=== PATIENT | female | born 1965 | race Caucasian/White ===

== ENCOUNTER 2016-09-14 19:29 | Inpatient (IN) | payer BC, OTHER ==
[~2016-09-14] VITALS: Ht 154.9 cm; Wt 72.1 kg
[2016-09-14] MEDS ORDERED: ACETAMINOPHEN 500 MG TAB (TYLENOL) PO ONE (21:00)
[2016-09-14] MEDS ORDERED: IBUPROFEN 800 MG (MOTRIN) TAB PO ONE (21:00)
[2016-09-14 21:05] LABS: BILIRUBIN,URINE NEGATIVE (NEGATIVE); KETONES,URINE NEGATIVE (NEGATIVE); LEUKOCYTE ESTERASE ,URINE 3+ (NEGATIVE); NITRITE,URINE POSITIVE (NEGATIVE); PH,URINE 6 (5-9); PROTEIN,URINE 1+ (NEGATIVE); UROBILINOGEN,URINE NORMAL (NORMAL)
[2016-09-14 21:08] LABS: BASOPHILS % (AUTO) 0 % (0-10); EOSINOPHILS # (AUTO) 0.1 10^3/uL (0.0-0.3); EOSINOPHILS % (AUTO) 0 % (0-10); LYMPHOCYTES # (AUTO) 3.4 X 10^3 (1.0-4.0); LYMPHOCYTES % (AUTO) 20 % (12-44); MEAN CORPUSCULAR HEMOGLOBIN 27 PG (25-34); MEAN CORPUSCULAR HGB CONC 34 G/DL (32-36); MEAN CORPUSCULAR VOLUME 81 FL (80-99); MEAN PLATELET VOLUME 9.8 FL (7.4-10.4); MONOCYTES # (AUTO) 2.5 X 10^3 (0.0-1.0); MONOCYTES % (AUTO) 14 % (0-12); NEUTROPHILS # (AUTO) 11.3 X 10^3 (1.8-7.8); NEUTROPHILS % (AUTO) 65 % (42-75); PLATELET COUNT 276 10^3/uL (130-400); RED BLOOD COUNT 4.22 10^6/uL (4.35-5.85); WHITE BLOOD COUNT 17.3 10^3/uL (4.3-11.0)
[2016-09-14 21:17] LABS: WBC,URINE TNTC /HPF
[2016-09-14 21:31] LABS: ALANINE AMINOTRANSFERASE 31 U/L (0-55); ALBUMIN 4.1 GM/DL (3.2-4.5); ANION GAP 14 MMOL/L (5-14); ASPARTATE AMINO TRANSFERASE 20 U/L (5-34); BILIRUBIN,TOTAL 0.6 MG/DL (0.1-1.0); BLOOD UREA NITROGEN 11 MG/DL (7-18); BUN/CREATININE RATIO 12 (0-20); CALCIUM 9.9 MG/DL (8.5-10.1); CARBON DIOXIDE 17 MMOL/L (21-32); CHLORIDE 103 MMOL/L (98-107); CREATININE SERUM 0.92 MG/DL (0.60-1.30); GFR ESTIMATED > 60; GLUCOSE 181 MG/DL (70-105); HEMOLYSIS 10 (-100-29); ICTERUS 0.5 (-100-1.9); LIPEMIA 3 (-100-49); POTASSIUM 3.9 MMOL/L (3.6-5.0); SODIUM 134 MMOL/L (135-145); TOTAL PROTEIN 7.1 GM/DL (6.4-8.2)
[2016-09-14] MEDS ORDERED: LEVOFLOXACIN 500 MG TAB (LEVAQUIN) PO STA (21:34)
[2016-09-14] MEDS ORDERED: NS IV 1000 ML 1,000 ML IV ONE (21:35)
[2016-09-14 21:36] LABS: BAND NEUTROPHILS 4 %; LYMPHOCYTES % (MANUAL) 14 %; NEUTROPHILS % (MANUAL) 72 %
[2016-09-14] MEDS ORDERED: cefTRIAXone INJECTION 1,000 MG in NS (IVPB) 50 ML IV ONE (21:45)
--- NOTE | 2016-09-14 22:02 | Diagnostic Imaging Report ---
INDICATION: Abdomen pain, UTI. History of kidney stones. EXAMINATION: CT abdomen and pelvis without contrast, 09/14/2016. FINDINGS: Minimal linear atelectasis or scar is seen in the right middle lobe and in the lingula. Remaining visualized lung bases are unremarkable. Within the abdomen and pelvis, the nonopacified abdominal viscera are limited due to lack of contrast. There is a hyperdensity nonspecific in nature within the left lobe of the liver which measures at least 9.3 mm in size. A very vague increased density in the right lobe of the liver, seen on image 43 and 42, are also noted and nonspecific. There is a larger vague hyperdensity in the left lobe of the liver as well, images 24 through 29.There is evidence of previous cholecystectomy. The spleen is unremarkable. The pancreas is normal in appearance. Adrenal glands are unremarkable. There are no ureteral stones on either side and there is no hydronephrosis. However, there is mild fat stranding about the kidneys, right greater than left. All of these findings could be chronic superimposed recently passed stone or pyelonephritis can cause a similar appearance, correlate clinically. Punctate nonobstructive stone is seen in both kidneys as well. There is no significant ascites. There is no free air. Appendix is unremarkable. There is no acute osseous abnormality. Changes within several vertebral bodies in the upper lumbar region are likely hemangiomas. IMPRESSION: 1. Minimal fat stranding about the kidneys, right greater than left but no hydronephrosis or ureteral stone is appreciated. All of these findings could be chronic. Clinical correlation with a urinalysis is recommended. A recently passed stone or pyelonephritis could cause a similar appearance. 2. Vague hyperdensities within the liver of uncertain significance. These could represent partially calcified lesions or hemorrhagic lesions. However, postcontrast imaging of the liver using a liver protocol is recommended for further characterization. 3. Other incidental findings as described above. Dictated by: Dictated on workstation # [id number]
[2016-09-14] MEDS ORDERED: cefTRIAXone 1 GM (ROCEPHIN) VIAL ONE (22:12)
[2016-09-14] MEDS ORDERED: NS (IVPB) 50 ML ONE (22:12)
--- NOTE | 2016-09-14 23:11 | ED GU-Female ---
General Chief Complaint: -Female Stated Complaint: POSSIBLE UTI/FEVER Source: patient History of Present Illness Time seen by provider: 20:42 Initial Comments PT BEGAN HAVING MILD BURNING ON URINATION LAST NIGHT BURNING IS MUCH WORSE TODAY C/O LOWER BACK PAIN TONIGHT, BEGAN RUNNING FEVER--WAS 100.2 AT HOME C/O MILD NAUSEA, NO VOMITING NO ABDOMINAL PAIN TOOK AZO X 1, BUT NOTHING ELSE FOR SYMPTOMS PT IS DIABETIC AND HAS HAD MULTIPLE UTI'S, BUT USUALLY NOT THIS BAD PCP: DR. ARRIAGA Allergies and Home Medications Allergies Coded Allergies: No Known Drug Allergies (Unverified , 09/14/16) Constitutional: see HPI, fever, malaise EENTM: no symptoms reported Respiratory: no symptoms reported Cardiovascular: no symptoms reported Gastrointestinal: see HPI, No abdominal pain, loss of appetite, nausea, No vomiting Genitourinary: see HPI, burning, flank pain : No (LMP--DOES NOT HAVE PERIODS--IS ON CONTINUOUS HORMONE THERAPY) Musculoskeletal: see HPI, back pain Skin: no symptoms reported Psychiatric/Neurological: No Symptoms Reported Endocrine: No Symptoms Reported Hematologic/Lymphatic: No Symptoms Reported Past Rypomqs-Vpsbdm-Lvlcjp Hx Patient Social History Alcohol Use: Denies Use Recreational Drug Use: No Smoking Status: Never a Smoker Recent Foreign Travel: No Contact w/Someone Who Travel: No Surgeries HX Surgeries: Yes (SINUS SURGERY; BREAST BIOPSY ( BENIGN ) : X 1) Surgeries: Breast, Section, Gallbladder Respiratory Hx Respiratory Disorders: Yes Respiratory Disorders: Asthma Cardiovascular Hx Cardiac Disorders: Yes Cardiac Disorders: Hypertension Neurological Hx Neurological Disorders: No Reproductive System : No Female Reproductive Disorders: Denies Genitourinary Hx Genitourinary Disorders: Yes Genitourinary Disorders: Bladder Infection Gastrointestinal Hx Gastrointestinal Disorders: No Musculoskeletal Hx Musculoskeletal Disorders: No Endocrine Hx Endocrine Disorders: Yes Endocrine Disorders: Hypothyroidsim, Diabetes, Non-Insulin dep HEENT HX ENT Disorders: No Cancer Hx Cancer: No Psychosocial Hx Psychiatric Problems: No Integumentary HX Skin/Integumentary Disorder: No Blood Transfusions Hx Blood Disorders: No Physical Exam Vital Signs Vital Sign - Last 12Hours 09/14/16 20:38 Temp 101.4 Pulse 89 Resp 14 B/P (MAP) 147/97 Pulse Ox 98 O2 Delivery Room Air Capillary Refill : General Appearance: WD/WN, no apparent distress Neck: normal inspection Cardiovascular: regular rate, rhythm, no murmur Respiratory: normal breath sounds, no respiratory distress, no accessory muscle use Gastrointestinal: normal bowel sounds, non tender, soft, no organomegaly, no pulsatile mass Back: no vertebral tenderness, CVA tenderness (R) (MILD), CVA tenderness (L) ( MILD) Extremities: normal inspection, no pedal edema, no calf tenderness, normal capillary refill Neurologic/Psychiatric: driveway attendant II-XII nml as tested, no motor/sensory deficits, alert, normal mood/affect, oriented x 3 Skin: normal color, warm/dry, No rash Focused Exam Lactic Acid Level Progress/Results/Core Measures Results/Orders Lab Results Laboratory Tests Test 09/14/16 20:38 09/14/16 20:59 Range/Units Urine Color YELLOW Urine Clarity CLEAR Urine pH 6 5-9 Urine Specific [place] 1.010 L 1.016-1.022 Urine Protein 1+ H NEGATIVE Urine Glucose (UA) NEGATIVE NEGATIVE Urine Ketones NEGATIVE NEGATIVE Urine Nitrite POSITIVE H NEGATIVE Urine Bilirubin NEGATIVE NEGATIVE Urine Urobilinogen NORMAL NORMAL MG/DL Urine Leukocyte Esterase 3+ H NEGATIVE Urine RBC (Auto) 1+ H NEGATIVE Urine RBC NONE /HPF Urine WBC TNTC H /HPF Urine Squamous Epithelial Cells 5-10 /HPF Urine Crystals NONE /LPF Urine Bacteria LARGE H /HPF Urine Casts NONE /LPF Urine Mucus SMALL H /LPF Urine Culture Indicated YES White Blood Count 17.3 H 4.3-11.0 10^3/uL Red Blood Count 4.22 L 4.35-5.85 10^6/uL Hemoglobin 11.4 L 11.5-16.0 G/DL Hematocrit 34 L 35-52 % Mean Corpuscular Volume 81 80-99 FL Mean Corpuscular Hemoglobin 27 25-34 PG Mean Corpuscular Hemoglobin Concent 34 32-36 G/DL Red Cell Distribution Width 13.0 10.0-14.5 % Platelet Count 276 130-400 10^3/uL Mean Platelet Volume 9.8 7.4-10.4 FL Neutrophils (%) (Auto) 65 42-75 % Lymphocytes (%) (Auto) 20 12-44 % Monocytes (%) (Auto) 14 H 0-12 % Eosinophils (%) (Auto) 0 0-10 % Basophils (%) (Auto) 0 0-10 % Neutrophils # (Auto) 11.3 H 1.8-7.8 X 10^3 Lymphocytes # (Auto) 3.4 1.0-4.0 X 10^3 Monocytes # (Auto) 2.5 H 0.0-1.0 X 10^3 Eosinophils # (Auto) 0.1 0.0-0.3 10^3/uL Basophils # (Auto) 0.0 0.0-0.1 10^3/uL Neutrophils % (Manual) 72 % Lymphocytes % (Manual) 14 % Monocytes % (Manual) 10 % Band Neutrophils 4 % Toxic Granulation 1+ Blood Morphology Comment NORMAL Sodium Level 134 L 135-145 MMOL/L Potassium Level 3.9 3.6-5.0 MMOL/L Chloride Level 103 98-107 MMOL/L Carbon Dioxide Level 17 L 21-32 MMOL/L Anion Gap 14 5-14 MMOL/L Blood Urea Nitrogen 11 7-18 MG/DL Creatinine 0.92 0.60-1.30 MG/DL Estimat Glomerular Filtration Rate > 60 BUN/Creatinine Ratio 12 0-20 Glucose Level 181 H 70-105 MG/DL Lactic Acid Level 1.91 0.50-2.00 MMOL/L Calcium Level 9.9 8.5-10.1 MG/DL Total Bilirubin 0.6 0.1-1.0 MG/DL Aspartate Amino Transf (AST/SGOT) 20 5-34 U/L Alanine Aminotransferase (ALT/SGPT) 31 0-55 U/L Alkaline Phosphatase 53 40-136 U/L Total Protein 7.1 6.4-8.2 GM/DL Albumin 4.1 3.2-4.5 GM/DL My Orders Orders - KAYDENRANJAN DO Saline Lock/Iv-Start (09/14/16 20:42) Cbc With Automated Diff (09/14/16 20:42) Comprehensive Metabolic Panel (09/14/16 20:42) Lactic Acid Analyzer (09/14/16 20:42) Ua Culture If Indicated (09/14/16 20:42) Blood Culture (09/14/16 20:42) Acetaminophen Tablet (Tylenol Tablet) (09/14/16 21:00) Ibuprofen Tablet (Motrin Tablet) (09/14/16 21:00) Manual Differential (09/14/16 20:59) Urine Culture (09/14/16 20:38) Ceftriaxone Injection (Rocephin Injectio (09/14/16 21:45) Levofloxacin Tablet (Levaquin Tablet) (09/14/16 21:34) Ct Abd/Pelvis Wo(Kidney Stone) (09/14/16 21:35) Abdomen/Kub 1view (09/14/16 21:35) Saline Lock/Iv-Start (09/14/16 21:35) Ns Iv 1000 Ml (Sodium Chloride 0.9%) (09/14/16 21:35) Ceftriaxone Injection (Rocephin Injectio (09/14/16 22:12) Ns (Ivpb) (Sodium Chloride 0.9% Ivpb Bag (09/14/16 22:12) Medications Given in ED Current Medications Medications Dose Ordered Sig/Bobby Route Start Time Stop Time Status Last Admin Dose Admin Acetaminophen 1,000 mg ONCE ONCE PO 09/14/16 21:00 09/14/16 21:02 DC 09/14/16 21:07 1,000 MG Ceftriaxone Sodium 1000 mg/ Sodium Chloride 50 ml @ 100 mls/hr ONCE ONCE IV 09/14/16 21:45 09/14/16 22:23 DC 09/14/16 22:24 100 MLS/HR Ibuprofen 800 mg ONCE ONCE PO 09/14/16 21:00 09/14/16 21:02 DC 09/14/16 21:08 800 MG Sodium Chloride 1,000 ml @ 0 mls/hr Q0M ONCE IV 09/14/16 21:35 09/14/16 21:37 DC 09/14/16 22:10 0 MLS/HR Vital Signs/I&O Vital Sign - Last 12Hours 09/14/16 09/14/16 09/14/16 09/15/16 20:38 21:07 21:08 00:00 Temp 101.4 101.4 101.4 Pulse 89 Resp 14 B/P (MAP) 147/97 Pulse Ox 98 O2 Delivery Room Air Room Air 09/15/16 09/15/16 00:00 02:00 Temp 98.1 98.3 Pulse 101 103 Resp 18 20 B/P (MAP) 121/75 108/63 Pulse Ox 97 95 O2 Delivery Room Air Room Air Progress Note : Progress Note FEELS MUCH BETTER WITH TYLENOL AND IBUPROFEN Diagnostic Imaging Comments KUB--NO ACUTE PROCESS, PENDING RADIOLOGIST REVIEW CT ABDOMEN/PELVIS--FAT STRANDING AROUND BOTH KIDNEYS RIGHT > LEFT, PYELONEPHRITIS VS RECENTLY PASSED STONES; NON-SPECIFIC HYPERDENSITIES IN LIVER-- PER RADIOLOGIST REPORT @ 2215 Reviewed: Reviewed by Me Departure Communication Progress Notes 2218--SPOKE WITH DR. MIX, ACCEPTS PT FOR ADMIT. Impression Impression: Primary Impression: Pyelonephritis Additional Impressions: Sepsis Diabetes Disposition: ADMITTED INPATIENT Condition: Improved Decision to Admit Reason: Admit from ER (General) Decision to Admit/Date: Sep 14, 2016 Time/Decision to Admit Time: 22:20 Departure-Patient Inst. Referrals: MITCH ARRIAGA DO (PCP) Primary Care Physician RANJAN MONIQUE DO Sep 14, 2016 11:11 pm
[2016-09-15] VITALS (7 sets, daily range): BP systolic 108–156; BP diastolic 63–85
[2016-09-15] MEDS ORDERED: ONDANSETRON 4 MG/2 ML (SDV) Z0FRAN IV PRN (00:30)
[2016-09-15] MEDS: NS IV 1000 ML 1,000 ML IV SCH ×3 (00:41→16:58)
[2016-09-15 05:14] LABS: BASOPHILS % (AUTO) 0 % (0-10); EOSINOPHILS # (AUTO) 0.1 10^3/uL (0.0-0.3); EOSINOPHILS % (AUTO) 1 % (0-10); LYMPHOCYTES # (AUTO) 2.2 X 10^3 (1.0-4.0); LYMPHOCYTES % (AUTO) 19 % (12-44); MEAN CORPUSCULAR HEMOGLOBIN 27 PG (25-34); MEAN CORPUSCULAR HGB CONC 33 G/DL (32-36); MEAN CORPUSCULAR VOLUME 81 FL (80-99); MEAN PLATELET VOLUME 9.6 FL (7.4-10.4); MONOCYTES # (AUTO) 1.5 X 10^3 (0.0-1.0); MONOCYTES % (AUTO) 13 % (0-12); NEUTROPHILS # (AUTO) 7.6 X 10^3 (1.8-7.8); NEUTROPHILS % (AUTO) 67 % (42-75); PLATELET COUNT 235 10^3/uL (130-400); RED BLOOD COUNT 3.89 10^6/uL (4.35-5.85); WHITE BLOOD COUNT 11.4 10^3/uL (4.3-11.0)
[2016-09-15 05:43] LABS: ALANINE AMINOTRANSFERASE 25 U/L (0-55); ALBUMIN 3.4 GM/DL (3.2-4.5); ANION GAP 9 MMOL/L (5-14); ASPARTATE AMINO TRANSFERASE 14 U/L (5-34); BILIRUBIN,TOTAL 0.5 MG/DL (0.1-1.0); BLOOD UREA NITROGEN 13 MG/DL (7-18); BUN/CREATININE RATIO 14 (0-20); CARBON DIOXIDE 20 MMOL/L (21-32); CHLORIDE 106 MMOL/L (98-107); CREATININE SERUM 0.91 MG/DL (0.60-1.30); GFR ESTIMATED > 60; GLUCOSE 250 MG/DL (70-105); HEMOLYSIS 3 (-100-29); ICTERUS 0.4 (-100-1.9); LIPEMIA 18 (-100-49); POTASSIUM 3.9 MMOL/L (3.6-5.0); SODIUM 135 MMOL/L (135-145)
[2016-09-15] MEDS: inSUlin (REGULAR) HUMAN 1 UNIT/0.01 ML (CHARGE PER UNIT) SC SCH ×4 (06:19→20:56)
[2016-09-15] MEDS: ACETAMINOPHEN 500 MG TAB (TYLENOL) PO PRN ×2 (06:39→19:27)
--- NOTE | 2016-09-15 08:23 | Diagnostic Imaging Report ---
Indication: Abdominal pain, history of UTI and kidney stones. KUB obtained at 1012 hrs. p.m. There are surgical clips in the right upper quadrant. There is prominent stool throughout the colon there is no sign of obstruction or ileus. There are no definite radiopaque calculi overlying the renal shadows. IMPRESSION: Prominent stool throughout the colon. Unremarkable bowel gas pattern. Surgical clips in right upper quadrant. No suspicious calcifications are detected. Dictated by: Dictated on workstation # [id number]
[2016-09-15] MEDS ORDERED: SPIR50TA2 PO (08:28)
[2016-09-15] MEDS ORDERED: MONT10TA24 PO (08:28)
[2016-09-15] MEDS ORDERED: MAGN250T13 PO (08:28)
[2016-09-15] MEDS ORDERED: CHOL20003 PO (08:28)
[2016-09-15] MEDS ORDERED: FLUT1DIS27 INH (08:28)
[2016-09-15] MEDS ORDERED: ALBU18HF2 INH (08:28)
[2016-09-15] MEDS ORDERED: CETI10TA20 PO (08:28)
[2016-09-15] MEDS ORDERED: LISI-552 PO (08:28)
[2016-09-15] MEDS ORDERED: METF1000 PO (08:28)
[2016-09-15] MEDS ORDERED: NORE-53 PO (08:28)
[2016-09-15] MEDS ORDERED: LEVO200T6 PO (08:28)
[2016-09-15] MEDS ORDERED: CALC-654 PO (08:28)
[2016-09-15] MEDS ORDERED: LIRA0.6P3 SC (08:28)
[2016-09-15] MEDS: IBUPROFEN 800 MG (MOTRIN) TAB PO PRN ×2 (11:39→20:50)
[2016-09-15] MEDS ORDERED: LEVOFLOXACIN 500 MG TAB (LEVAQUIN) PO SCH (23:00)
[2016-09-15] MEDS ORDERED: cefTRIAXone INJECTION 1,000 MG in NS (IVPB) 50 ML IV SCH (23:00)
[2016-09-16 00:30] VITALS: BP 131/80
[2016-09-16] MEDS: NS IV 1000 ML 1,000 ML IV SCH ×2 (03:30→17:17)
[2016-09-16 04:29] VITALS: BP 133/86
[2016-09-16] MEDS: inSUlin (REGULAR) HUMAN 1 UNIT/0.01 ML (CHARGE PER UNIT) SC SCH ×3 (06:51→16:32)
[2016-09-16 08:00] VITALS: BP 136/88
[2016-09-16 09:05] VITALS: BP 136/88
--- NOTE | 2016-09-16 11:55 | History & Physical-Hospitalist ---
HPI History of Present Illness: HPI/Chief Complaint Mrs. Barrera is a 51-year-old white female who noted the onset of dysuria with increased frequency on the 13 of September. By the morning of the it was much worse and she developed shaking chills and fever with fatigue. She has had urinary tract infection in the past but symptoms have not been severe and abrupt in onset. She reported low back pain but denied true flank pain to this interviewer. She was febrile emergency room with leukocytosis and a CAT scan revealed inflammatory change in both kidneys. No other significant CT abnormalities were noted. She met criteria for sepsis not severe and was admitted on empiric antibiotic therapy and therefore of Rocephin 1 g every 24. She reports no recent antibiotic therapy or any known history of persistent bacterial problems in the past. She been feeling well up until the onset of her symptoms on the . She admits that she gets most of her fluid in the form of diet Dr. Melvin.'s medical history is significant for type II diabetes mellitus on the Actos and metformin reportedly under reasonable control. Date Seen 09/15/16 Time Seen by Provider: 08:30 Attending Physician Mitch Mayberry DO PCP Mitch Mayberry DO Referring Physician Date of Admission Sep 14, 2016 at 22:20 Home Medications & Allergies Home Medications Reviewed patient Home Medication Reconciliation Form Allergies Allergies Coded Allergies No Known Drug Allergies (Unverified09/14/16) Past Splhkkn-Ntrbel-Acqdwb Hx Patient Social History Alcohol Use: Denies Use Recreational Drug Use: No Smoking Status: Never a Smoker Physical Abuse Screen: No Sexual Abuse: No Recent Foreign Travel: No Contact w/other who traveled: No Recent Hopitalizations: No Recent Infectious Disease Expo: No Immunizations Up To Date Date of Pneumonia Vaccine: Mar 30, 2011 Seasonal Allergies Seasonal Allergies: No Surgeries HX Surgeries: Yes (SINUS SURGERY; BREAST BIOPSY ( BENIGN ) : X 1) Surgeries: Breast, Section, Gallbladder Respiratory Hx Respiratory Disorders: Yes Cardiovascular Hx Cardiovascular Disorders: Yes Cardiac Disorders: Hypertension Neurological Hx Neurological Disorders: No Reproductive System : No Female Reproductive Disorders: Denies Genitourinary Hx Genitourinary Disorders: Yes Genitourinary Disorders: Kidney Infection, Kidney Stones Gastrointestinal Hx Gastrointestinal Disorders: No Gastrointestinal Disorders: Irritable Bowel Musculoskeletal Hx Musculoskeletal Disorders: No Musculoskeletal Disorders: Fractures Endocrine Hx Endocrine Disorders: Yes Endocrine Disorders: Hypothyroidsim, Diabetes, Non-Insulin dep HEENT HX ENT Disorders: No Cancer Hx Cancer: No Psychosocial Hx Psychiatric Problems: No Integumentary HX Skin/Integumentary Disorder: No Blood Transfusions Hx Blood Disorders: No Family Medical History Family Hx: Asthma 19 MOTHER G8 BROTHER Diabetes mellitus 19 MOTHER FH: irritable bowel syndrome 19 MOTHER Kidney stone 19 FATHER Myocardial infarction 19 FATHER Squamous cell carcinoma 19 MOTHER Thyroid disease 19 MOTHER Review of Systems Date Seen by Provider: Sep 15, 2016 Time Seen by Provider: 08:30 Constitutional: see HPI, chills, diaphoresis, fever, weakness Cardiovascular: No chest pain, No edema, No Hx of Intervention, No palpitations , No syncope, No vascular heart diseas, No other Genitourinary: No no symptoms reported, see HPI, No decreased output, No discharge, dysuria, frequency, No hematuria, No hesitancy, No incontinence, No nocturia, pain Physical Exam Physical Exam Vital Signs Vital Sign - Last 12Hours 09/14/16 20:38 Temp 101.4 Pulse 89 Resp 14 B/P (MAP) 147/97 Pulse Ox 98 O2 Delivery Room Air Capillary Refill : Less Than 3 SecondsLess Than 3 Seconds General Appearance: No Apparent Distress, WD/WN Respiratory: Chest Non Tender, Lungs Clear, Normal Breath Sounds, No Accessory Muscle Use, No Respiratory Distress Cardiovascular: Regular Rate, Rhythm, No Edema, No Gallop, No JVD, No Murmur, Normal Peripheral Pulses Gastrointestinal: Normal Bowel Sounds, No Organomegaly, No Pulsatile Mass, Non Tender (sure sensation suprapubic palpation only. No palpable upper maladies noted.), Soft Results Results/Procedures Lab Laboratory Tests 09/14/16 20:59 09/15/16 04:50 Assessment/Plan Admission Diagnosis 1. Urinary tract infection with sepsis not severe continue IV fluids and IV antibiotics. 2. Type II diabetes mellitus initiate diabetic diet hold metformin for now. Copy Copies To 1: MITCH MAYBERRY DO Clinical Quality Measures DVT/VTE Risk/Contraindication: Risk Factor Score Per Nursin RFS Level Per Nursing on Admit: 4+=Very High BRANDT ANN MD Sep 16, 2016 11:55
[2016-09-16] MEDS ORDERED: CEFD300C3 PO (12:03)
[2016-09-16] MEDS ORDERED: FLUC100T PO (12:03)
[2016-09-16 15:59] VITALS: BP 147/87
[2016-09-16] MEDS ORDERED: morphine INJ 4 MG/ML 1 ML (VIAL/SYRINGE) IVP PRN (17:00)
[2016-09-16] MEDS ORDERED: cefTRIAXone INJECTION 1,000 MG in NS (IVPB) 50 ML IV SCH (17:00)
[2016-09-16] MEDS: IBUPROFEN 800 MG (MOTRIN) TAB PO PRN (17:32)
[2016-09-16 18:21] VITALS: BP 147/87
--- NOTE | 2016-09-17 14:15 | Discharge Summary-Hospitalist ---
Diagnosis/Chief Complaint Date of Admission Sep 14, 2016 at 22:20 Date of Discharge Sep 16, 2016 at 18:06 Admission Diagnosis 1. Urinary tract infection with sepsis not severe continue IV fluids and IV antibiotics. 2. Type II diabetes mellitus initiate diabetic diet hold metformin for now. Discharge Diagnosis As per above with the addition of Escherichia coli as the etiologic agent of her urinary tract infection and sepsis and code pyelonephritis bilateral Reason Hospital Visit/Course Mrs. Barrera is a 51-year-old white female who noted the onset of dysuria with increased frequency on the 13 of September. By the morning of the it was much worse and she developed shaking chills and fever with fatigue. She has had urinary tract infection in the past but symptoms have not been severe and abrupt in onset. She reported low back pain but denied true flank pain to this interviewer. She was febrile emergency room with leukocytosis and a CAT scan revealed inflammatory change in both kidneys. No other significant CT abnormalities were noted. She met criteria for sepsis not severe and was admitted on empiric antibiotic therapy and therefore of Rocephin 1 g every 24. She reports no recent antibiotic therapy or any known history of persistent bacterial problems in the past. She been feeling well up until the onset of her symptoms on the . She admits that she gets most of her fluid in the form of diet Dr. Melvin.'s medical history is significant for type II diabetes mellitus on the Actos and metformin reportedly under reasonable control. Hospital course: Patient was admitted and started on IV fluids in addition to IV Rocephin 1 g every 24. She had cooked effervescence of her fever and the following morning her white count was down to 11,000 from a little over 17,000 on admission. She was tolerating liquids and solids. She grew out Escherichia coli from her urine as well as one blood culture with stewart sensitivity including ampicillin. She had no further Reiger's with MAXIMUM TEMPERATURE of 100.6 which occurred about 24 hours before her discharge following that all temperatures were normal. She reports on antibiotics with her diabetes she will miles likely develop vaginal candidiasis so she was discharged with Diflucan 100 mg every other day for 3 doses in addition to Omnicef 300 mg twice a day for another week. The morning of her discharge her chest was clear and she had no flank pain. In fact she had some lower lumbar pain with admission but never did experience flank pain although she did have some nonspecific changes on CT scan suggesting the possibility of bilateral pyelonephritis there was no evidence for urinary obstruction, ureterolithiasis or nephrolithiasis. She was advised to follow-up with Dr. Mayberry in one week with repeat UA to document infection clearance. She was advised that discontinue all soda consumption regular or diet and obtain caffeine from unsweetened tea or coffee in addition to increased water intake. Urinary tract infection prevention issues were discussed as well. Discharge Summary Discharge Physical Examination Allergies: Coded Allergies: No Known Drug Allergies (Unverified , 09/14/16) Vitals & I&Os Vital Signs Date Time Temp Pulse Resp B/P (MAP) Pulse Ox O2 Delivery O2 Flow Rate FiO2 09/16/16 18:21 103 20 147/87 96 Room Air 09/16/16 18:02 99.3 Hospital Course Labs (last 24 hrs) Laboratory Tests 09/16/16 16:01: Glucometer 249H Microbiology 09/14/16 Blood Culture - Preliminary, Resulted Escherichia Coli 09/14/16 Urine Culture - Final, Complete Escherichia Coli Discharge Home Medications: Active Scripts Active Diflucan (Fluconazole) 100 Mg Tablet 100 Mg PO PRN 3 Days Cefdinir 300 Mg Capsule 300 Mg PO BID 5 Days Reported Vitamin D3 (Cholecalciferol (Vitamin D3)) 2,000 Unit Capsule 2,000 Unit PO DAILY Magnesium (Magnesium Oxide) 250 Mg Tablet 250 Mg PO DAILY Calcium 500 + D Tablet (Calcium Carbonate/Vitamin D3) 1 Each Tablet 1 Tab PO DAILY Levothyroxine Sodium 200 Mcg Tablet 200 Mcg PO DAILY Lisinopril 20 Mg Tablet 20 Mg PO DAILY Spironolactone 50 Mg Tablet 50 Mg PO DAILY Victoza 3-Derick (Liraglutide) 0.6 Mg/0.1 Ml Pen.injctr 1.8 Mg SC HS Metformin HCl 1,000 Mg Tablet 1,000 Mg PO BID WITH MEALS Minastrin 24 Fe Chewable Tab (Norethindrone-E.estradiol-Iron) 1 Each Tab.chew 1 Tab PO DAILY Ventolin Hfa (Albuterol Sulfate) 18 Gm Hfa.aer.ad 2 Puff INH Q4H PRN Montelukast Sodium 10 Mg Tablet 10 Mg PO DAILY Advair 500-50 Diskus (Fluticasone/Salmeterol) 1 Each Blst.w.dev 1 Puff INH DAILY Zyrtec (Cetirizine HCl) 10 Mg Tablet 10 Mg PO DAILY Instructions to patient/family Please see electonic discharge instructions given to patient. Clinical Quality Measures DVT/VTE Risk/Contraindication: Risk Factor Score Per Nursin RFS Level Per Nursing on Admit: 4+=Very High Copy Copies To 1: MITCH MAYBERRY MARK D MD Sep 17, 2016 14:15
== END 2016-09-16 18:06 | disposition home or self-care (01) | DRG 872 ==
LOC: ER 19:32 → 4TH 22:20
PROVIDERS: ADMIT Internal Medicine; ATTEND Internal Medicine
DX: A41.9 Sepsis, unspecified organism (principal); N39.0 Urinary tract infection, site not specified; B96.20 Unspecified Escherichia coli [E. coli] as the cause of diseases classified elsewhere; I10 Essential (primary) hypertension; J45.909 Unspecified asthma, uncomplicated; E11.9 Type 2 diabetes mellitus without complications; E03.9 Hypothyroidism, unspecified
CPT/HCPCS: 36415; 74000; 74176; 80053; 81000; 82962; 83605; 85007; 85025; 85027; 87040; 87077; 87088; 87186